=== PATIENT | male | born 1990 | race Caucasian/White ===

== ENCOUNTER 2017-11-25 21:25 | Emergency (ER) | payer OTHER ==
[2017-11-25] MEDS: IBUPROFEN 600 MG TAB PO (23:32)
[2017-11-25] MEDS: HYDROCODONE/APAP (5/325) TAB PO (23:32)
== END 2017-11-25 23:44 | disposition home or self-care (01) ==
LOC: FTE 21:25
DX: K08.89 Other specified disorders of teeth and supporting structures (principal)
CPT/HCPCS: 99283; Z7502

== ENCOUNTER 2018-02-14 22:29 | Emergency (ER) | payer OTHER ==
[2018-02-15] MEDS: GUAIFENESIN/CODEINE 5ML CUP PO (01:26)
== END 2018-02-15 02:56 | disposition home or self-care (01) ==
LOC: FTE 22:29
DX: J18.9 Pneumonia, unspecified organism (principal)
CPT/HCPCS: 71045; 99283-25